=== PATIENT | female | born 2000 | race Hispanic/Latino ===

== ENCOUNTER 2021-06-05 15:05 | Emergency (ER) | payer SELFPAY ==
[2021-06-05 15:33] VITALS: BP 103/65; PULSE 66; RESP 18; TEMP 36.7; O2SAT 100
--- NOTE | 2021-06-05 17:27 | ED.DENTAL ---
HPI - Dental/Oral General Chief complaint: Dental/Oral Stated complaint: jaw pain Time Seen by Provider: 06/05/21 17:08 Source: patient Mode of arrival: ambulatory Limitations: language barrier (her son is interpreting which she preferred) History of Present Illness HPI Narrative: This is a 21 year old female that presents to the ER for dental pain present x 1 day. Reports associated swelling of the right jaw. Denies fever or dysphagia. MD Complaint: tooth pain Location: Tooth # (31) Review of Systems Review of Systems: CONSTITUTIONAL: Denies fever ENT: Reports dentalgia All systems reviewed & are unremarkable except as noted in HPI and below PMFSH Past Medical History Medical History (Updated 06/05/21 @ 18:02 by Denice Comer PA-C) No active medical problems Social History Social History (Updated 06/05/21 @ 17:29 by Denice Comer PA-C) Smoking status: Never smoker Exam Narrative: GENERAL: Well-appearing, well-nourished, and in no acute distress. HEAD: Normocephalic, atraumatic. EYES: EOMI. ENT: Mucous membranes moist. Oropharynx without tonsillar hypertrophy exudate or other lesions. Bilateral TMs pearly sánchez non-bulging. Floor of mouth is soft. No trismus. Tooth # 31 tender to palpation with surrounding erythema and edema NECK: Supple. Right sided tender submandibular adenopathy CHEST: Clear to auscultation. No respiratory distress. No wheezes rales or rhonchi HEART: Regular rate and rhythm. No murmur heard. Normal peripheral pulses. EXTREMITIES: Normal range of motion. No edema. SKIN: Warm, dry, no rash. NEURO: No focal deficits. Alert and oriented x3. PSYCH: Normal mood and affect Course Vital Signs Vital signs: Vital Signs Temperature 98.1 F 06/05/21 15:33 Pulse Rate 66 06/05/21 15:33 Respiratory Rate 18 06/05/21 15:33 Blood Pressure 103/65 06/05/21 15:33 Pulse Oximetry 100 06/05/21 15:33 Temperature 98.1 F 06/05/21 15:33 Pulse Rate 66 06/05/21 15:33 Respiratory Rate 18 06/05/21 15:33 Blood Pressure 103/65 06/05/21 15:33 Pulse Oximetry 100 06/05/21 15:33 Procedures Abscess I/D oral: Date of Incision: 06/05/21 Time of Incision: 18:01 Side (if applicable): right Local Anesthetic: none (Tetracaine) Technique: needle aspiration I&D Results: Pus and Blood MDM - Dental/Oral MDM Narrative Medical decision making narrative: Patient presents to the ER for dental pain present since yesterday. She is afebrile and nontoxic appearing. No trismus. Floor of mouth is soft. She did have a dental abscess which was drained. She will be started on oral antibiotics and was instructed to follow-up with a dentist. She was given warnings to return to the ER Critical Care Time Critical Care Time Critical Care Time: No Discharge Plan Discharge Clinical Impression: Dental abscess Patient Disposition: Home, Self-Care Condition: Stable Instructions: Antibiotic Form, Dental Abscess (ED) Additional Instructions: Return to the Emergency Department if you experience fever >101, increasing swelling and redness of your tooth, difficulty swallowing, trouble breathing, or any other symptoms that are concerning to you Take antibiotic (Augmentin) as prescribed. Tylenol or Ibuprofen as needed for pain. Follow up with a dentist. Dr. Ye Hernandez at [facility] if needed Patient Language: Welsh Prescriptions: New amoxicillin-pot clavulanate 875-125 mg tablet 1 tablet PO Q12H 10 Days Qty: 20 RF: 0 Follow-up/Referrals: PHYSICIAN,TAX COMPLIANCE MANAGER [Primary Care Provider] -
[2021-06-05] MEDS: AMOXICILLIN/CLAVULANATE K 875-125 MG TAB 1 TABLET PO (18:47)
== END 2021-06-05 18:50 | disposition home or self-care (01) ==
PROVIDERS: Emergency Provider Emergency Medicine
DX: K04.7 Periapical abscess without sinus (principal)
CPT/HCPCS: 41800; 99283; A9270

== ENCOUNTER 2024-06-20 16:22 | Emergency (ER) | payer SELFPAY ==
--- NOTE | 2024-06-20 16:32 | ED_ITS ---
HPI - URI/Sore Throat General Chief Complaint: Upper Respiratory Infection Stated Complaint: COUGH/SORE THROAT Time Seen by Provider: 06/20/24 16:32 History of Present Illness HPI Narrative: 24-year-old female presented for complaint of cough, fever, nasal congestion and headache. Onset 5 days. Denies shortness of breath, wheezing vomiting or lethargy. Taking Tylenol. Related Data Home Medications ?Medication ?Instructions ?Recorded ?Confirmed ?Last Taken ?Type No Home Medications 06/20/24 06/20/24 Unknown History Allergies Allergy/AdvReac Type Severity Reaction Status Date / Time No Known Allergies Allergy Verified 06/20/24 16:34 Review of Systems Review of Systems: CONSTITUTIONAL: Denies body aches, fever, chills, or sweats. EYES: Denies visual changes, redness, or discharge. ENT: Reports rhinorrhea, congestion, sore throat CARDIOVASCULAR: Denies chest pain, palpitations, or edema. RESPIRATORY: Reports cough Denies dyspnea. GASTROINTESTINAL: Denies abdominal pain, nausea, vomiting, or diarrhea. SKIN: Denies rash, itching, or wounds. MUSCULOSKELETAL: Denies back pain, joint pain, or myalgia. NEUROLOGIC: Denies headache PMFSH Past Medical History Medical History No active medical problems Social History Social History Smoking status: Never smoker Exam Narrative: GENERAL: well-appearing, no acute distress. EYES: conjunctivae clear ENT: Mucous membranes moist. TM pearly sánchez with normal light reflex bilaterally; no tragal tenderness. Oropharynx mildly erythematous without lesions. Tonsils not enlarged and without exudate. No drooling, no hoarseness, no trismus, uvula midline. No tripod positioning, hot potato voice, or soft palate swelling. NECK: Supple. No lymphadenopathy CHEST: Clear to auscultation, breath sounds equal. No respiratory distress, speaks in full sentences. HEART: Regular rate and rhythm. No murmur heard. SKIN: Warm, dry, no rash. NEURO: Alert and oriented x3. Course Course Emergency Course: Patient is aware of diagnosis, understands and agrees to treatment plan. Anticipatory guidance given. Patient agrees to follow-up as directed and is aware of reasons to seek care at the emergency department. Portions of this record may have been created with voice recognition software Level of Care: Express Care Visit Vital Signs Vital signs: Vital Signs Oxygen Delivery Room Air 06/20/24 16:25 Temperature 98.4 F 06/20/24 16:38 Pulse Rate 76 06/20/24 16:38 Respiratory Rate 18 06/20/24 16:38 Blood Pressure 106/83 06/20/24 16:38 Pulse Oximetry 99 06/20/24 16:38 Oxygen Delivery Room Air 06/20/24 16:25 MDM - URI/Sore Throat MDM Narrative Medical decision making narrative: Negative flu, COVID, and strep result reviewed with pt. Advise supportive treatments. Patient is appropriate for outpatient treatment and follow-up. Patient is primarily Algerian speaking, senior grant writer services utilized throughout the encounter Differential Diagnosis Differential diagnosis: Likely upper respiratory infection, viral infection and pharyngitis Discharge Plan Discharge Clinical Impression: Upper respiratory infection Patient Disposition: Home, Self-Care Condition: Stable Instructions: Antibiotic Form, Upper Respiratory Infection (ED) Additional Instructions: Flu and COVID negative. Recommend Flonase spray and Zyrtec (or Claritin/Tammie) over the counter Cough syrup may cause drowsiness; avoid driving or take it at night time. Tylenol 1000mg every 8 hours as needed for pain Symptomatic treatment includes: rest, fluids, and increase humidity of the air at home. Follow up with your primary care provider in 1 week. Go to the ER for worsening symptoms or concerns. Patient Language: Algerian Prescriptions: No Action No Home Medications Follow-up/Referrals: UNKNOWN,DOCTOR [Primary Care Provider] - Stand Alone Forms: Work/School Release IP Time of Disposition: 16:59
[2024-06-20 16:38] VITALS: BP 106/83; PULSE 76; RESP 18; TEMP 36.9; O2SAT 99
[2024-06-20 16:56] LABS: EDCOVIDSCREEN Negative (Negative); EDINFLUASCREEN Negative (Negative); EDINFLUBSCREEN Negative (Negative); EDSTREPNEGPOS1 Negative (Negative)
== END 2024-06-20 17:00 | disposition home or self-care (01) ==
PROVIDERS: Emergency Provider Nurse Practitioner Family
DX: J06.9 Acute upper respiratory infection, unspecified (principal); Z20.822 Contact with and (suspected) exposure to COVID-19
CPT/HCPCS: 87081; 87426; 87804; 87880; 99213; G0463